=== PATIENT | female | born 1975 | race Two or more races ===

== ENCOUNTER 2019-01-13 10:04 | Observation (INO) | payer BC ==
[~2019-01-13] VITALS: Ht 157.5 cm; Wt 74.0 kg
[~2019-01-13 10:04] MED LIST: ALBU18HF INH; AMLO2.5T5 PO; ATOR10TA9 PO; CARV6.2512 PO; CLOP75TA PO; FLUT1BLS INH; IPRA3AMP30 INH; LOSA25TA2 PO; METO-93 PO; TICA90TA PO
--- NOTE | 2019-01-13 10:05 | NUR ---
PT TO ROOM FROM [facility], C/O 06/18 STERNAL CP WITH HX OF MD IN JUNE 2018. EKG DONE, PT PLACED ON MONITOR, MD AT BEDSIDE. FAMILY AT BEDSIDE. MED REC DONE.
[2019-01-13] MEDS ORDERED: SODIUM CHLORIDE FLUSH 10ML SYR IVF ONE (10:30)
[2019-01-13] MEDS ORDERED: MORPHINE SULFATE 4 MG/ML, 1ML IVPush PRN (10:30)
[2019-01-13] MEDS ORDERED: ONDANSETRON 2MG/ML, 2ML IVPush ONE (10:30)
[2019-01-13 10:53] LABS: BASOPHILS # (AUTO) 0.04 x10^3/uL (0-0.1); BASOPHILS % (AUTO) 0 % (0-1); EOSINOPHILS % (AUTO) 1 % (1-7); LYMPHOCYTES # (AUTO) 2.38 x10^3/uL (1-3.4); LYMPHOCYTES % (AUTO) 23 % (22-44); MD NO; MEAN CORPUSCULAR HEMOGLOBIN 31.6 pg (27.0-34.8); MEAN CORPUSCULAR VOLUME 95.9 fL (80-100); MEAN PLATELET VOLUME 6.9 fL (7.4-10.4); MONOCYTES % (AUTO) 5 % (2-9); NEUTROPHILS % (AUTO) 71 % (42-75); PLATELET COUNT 334 x10^3/uL (130-400); RED BLOOD COUNT 4.24 x10^6/uL (3.82-5.3); RED CELL DISTRIBUTION WIDTH 13.6 % (9.6-15.2)
[2019-01-13 11:05] LABS: ALANINE AMINOTRANSFERASE 18 U/L (12-78); ALBUMIN 3.5 g/dL (3.4-5.0); ANION GAP 7 mmol/L (5-15); CALCIUM 8.5 mg/dL (8.5-10.1); CHLORIDE 115 mmol/L (98-107); CREATININE 0.68 mg/dL (0.55-1.02)
[2019-01-13 11:09] LABS: ALKALINE PHOSPHATASE 68 U/L (45-117); BILIRUBIN,TOTAL 0.3 mg/dL (0.2-1.0); TROPONIN I < 0.015 ng/mL (0.000-0.045)
--- NOTE | 2019-01-13 11:10 | NUR ---
PT RESTING IN [place], FAMILY AT BEDSIDE, NAD
[2019-01-13] MEDS ORDERED: ONDANSETRON 2MG/ML, 2ML ONE (11:26)
[2019-01-13] MEDS ORDERED: MORPHINE SULFATE 4 MG/ML, 1ML ONE ×2 (11:26→11:29)
[2019-01-13] MEDS ORDERED: SODIUM CHLORIDE 0.9% 1,000 ML IV ONE (11:53)
[2019-01-13] MEDS ORDERED: SODIUM CHLORIDE FLUSH 10ML SYR IVF PRN (12:00)
[2019-01-13] MEDS ORDERED: BUTALB/APAP/CAFFEINE 50MG/325MG/40MG PO PRN (12:30)
[2019-01-13] MEDS ORDERED: NICOTINE 21 MG/24 HR PATCH.TD24 TD SCH (12:30)
[2019-01-13] MEDS ORDERED: ACETAMINOPHEN 325 MG TABLET PO PRN (12:30)
[2019-01-13] MEDS ORDERED: KETOROLAC 30 MG/1 ML IV PRN (12:30)
[2019-01-13] MEDS ORDERED: BISACODYL 10 MG SUPP PR PRN (12:30)
[2019-01-13] MEDS ORDERED: ALBUTEROL SULFATE INH PRN (12:30)
[2019-01-13] MEDS ORDERED: LIDODERM 5% PATCH TD PRN (12:30)
[2019-01-13] MEDS ORDERED: ENOXAPARIN 40 MG/0.4 ML SQ SCH (12:30)
[2019-01-13] MEDS ORDERED: ENALAPRILAT 1.25 MG/ML, 2ML IVPush PRN ×2 (12:30)
[2019-01-13] MEDS ORDERED: DOCUSATE 100 MG CAPSULE PO PRN (12:30)
[2019-01-13] MEDS ORDERED: ONDANSETRON ODT 4 MG PO PRN (12:30)
[2019-01-13] MEDS ORDERED: hydrALAzine 20 MG/ML, 1ML IVPush PRN (12:30)
[2019-01-13] MEDS ORDERED: ZOLPIDEM 5MG TABLET PO PRN (12:30)
[2019-01-13] MEDS ORDERED: ONDANSETRON 2MG/ML, 2ML IVPush PRN (12:30)
--- NOTE | 2019-01-13 12:46 | NUR ---
Sandy terrazas in EDM - 01/13/19 at 1336 by EMERY FAMILY AT BEDSIDE, FOUND PT EATING SANDWICH FROM FAMILY, PT AND FAMILY EDUCATED ON POC AND TO KEEP PT NPO UNTIL EVALUATED BY MD. MICHELINE BYRD
--- NOTE | 2019-01-13 12:46 | NUR ---
PT TO RESTROOM AND BACK TO BED. FAMILY AT BEDSIDE. NO NEEDS AT THIS TIME. CALL LIGHT WITHIN REACH
[2019-01-13 13:18] LABS: TROPONIN I < 0.015 ng/mL (0.000-0.045)
[2019-01-13 13:23] LABS: FREE T4 (FREE THYROXINE) 0.99 ng/dL (0.76-1.46)
[2019-01-13] MEDS ORDERED: ENOXAPARIN 40 MG/0.4 ML ONE (14:50)
[2019-01-13] MEDS ORDERED: NICOTINE 21 MG/24 HR PATCH.TD24 ONE (14:50)
--- NOTE | 2019-01-13 15:51 | NUR ---
TRIED TO CALL REPORT TO MELQUIADES NOBLES, TOLD SHE IS ON LUNCH AND WILL CALL BACK WHEN FINISHED
[2019-01-13 16:33] VITALS: BP 151/97
[2019-01-13] MEDS: ALBUTEROL/IPRATROPIUM 2.5MG/0.5MG, 3 ML NPPB SCH ×2 (17:00→21:00)
[2019-01-13 18:10] VITALS: BP 157/81
[2019-01-13] MEDS: CARVEDILOL 6.25 MG TABLET PO SCH (18:11)
[2019-01-13 18:53] VITALS: BP 130/84
[2019-01-13 19:05] LABS: TROPONIN I < 0.015 ng/mL (0.000-0.045)
[2019-01-13] MEDS: FAMOTIDINE 20 MG TABLET PO SCH (20:33)
[2019-01-13] MEDS ORDERED: ATORVASTATIN 10 MG TABLET PO SCH (21:00)
[2019-01-14 00:37] VITALS: BP 151/89
[2019-01-14 05:26] LABS: BASOPHILS # (AUTO) 0.03 x10^3/uL (0-0.1); BASOPHILS % (AUTO) 1 % (0-1); EOSINOPHILS # (AUTO) 0.13 x10^3/uL (0-0.4); EOSINOPHILS % (AUTO) 2 % (1-7); LYMPHOCYTES # (AUTO) 1.67 x10^3/uL (1-3.4); LYMPHOCYTES % (AUTO) 25 % (22-44); MD NO; MEAN CORPUSCULAR HEMOGLOBIN 32.6 pg (27.0-34.8); MEAN CORPUSCULAR HGB CONC 34.1 g/dL (32.4-35.8); MEAN CORPUSCULAR VOLUME 95.6 fL (80-100); MEAN PLATELET VOLUME 7.1 fL (7.4-10.4); MONOCYTES # (AUTO) 0.45 x10^3/uL (0.2-0.8); MONOCYTES % (AUTO) 7 % (2-9); NEUTROPHILS % (AUTO) 66 % (42-75); PLATELET COUNT 299 x10^3/uL (130-400); RED BLOOD COUNT 4.26 x10^6/uL (3.82-5.3); RED CELL DISTRIBUTION WIDTH 13.2 % (9.6-15.2)
[2019-01-14 05:41] LABS: ANION GAP 4 mmol/L (5-15); CALCIUM 8.2 mg/dL (8.5-10.1); CHLORIDE 113 mmol/L (98-107); CHOLESTEROL, TOTAL 164 mg/dL (140-239); CREATININE 0.73 mg/dL (0.55-1.02); TRIGLYCERIDES 61 mg/dL (50-200); VLDL CHOLESTEROL 12 mg/dL (0-25)
[2019-01-14 05:43] LABS: CHOL/HDL RATIO 3.8; HDL CHOL % 26 % (28-40); HDL CHOLESTEROL (DIRECT) 43 mg/dL (40-60); LDL CHOLESTEROL,CALCULATED 109 mg/dL (54-169); LDL/HDL RATIO 2.5 (0.5-3.0)
[2019-01-14 06:32] VITALS: BP 165/107
[2019-01-14] MEDS: CARVEDILOL 6.25 MG TABLET PO SCH (06:35)
[2019-01-14 06:55] VITALS: BP 152/92
[2019-01-14] MEDS ORDERED: CLOPIDOGREL 75 MG TABLET PO SCH (09:00)
[2019-01-14] MEDS ORDERED: AMLODIPINE 2.5 MG TABLET PO SCH (09:00)
[2019-01-14] MEDS ORDERED: LOSARTAN 50MG TABLET PO SCH (09:00)
[2019-01-14] MEDS ORDERED: FLUTICASONE/VILANTEROL 200-25MCG/INH INH SCH (09:00)
[2019-01-14] MEDS ORDERED: REGADENOSON 0.4 MG/5 ML SYRINGE ONE (10:01)
[2019-01-14] MEDS: FAMOTIDINE 20 MG TABLET PO SCH (11:18)
[2019-01-14] MEDS ORDERED: BUDESONIDE 0.5 MG/2 ML INHA NPPB SCH (11:30)
[2019-01-14] MEDS ORDERED: BUDESONIDE 0.5 MG/2 ML INHA HHN SCH (11:31)
[2019-01-14 13:26] VITALS: BP 157/99
== END 2019-01-14 16:53 | disposition home or self-care (01) ==
LOC: ED 11:33 → INTOOBSV 11:53 → EDIP 11:53 → 5SO 16:27 → DCLOUNGE 01-14 16:42
PROVIDERS: ADMIT Internal Medicine; ATTEND Internal Medicine
DX: R07.89 Other chest pain (principal); E11.9 Type 2 diabetes mellitus without complications; E78.5 Hyperlipidemia, unspecified; F12.90 Cannabis use, unspecified, uncomplicated; F31.9 Bipolar disorder, unspecified; F41.9 Anxiety disorder, unspecified; G43.909 Migraine, unspecified, not intractable, without status migrainosus; I10 Essential (primary) hypertension; I25.2 Old myocardial infarction; Z72.0 Tobacco use; Z88.6 Allergy status to analgesic agent
CPT/HCPCS: 36415; 71045; 78452; 80048; 80053; 80061; 82140; 83690; 84439; 84443; 84484; 85025; 93005; 93017; 93306; 94640; 96372; 96374; 96375; 99284; A9502; C9898; G0378; J1650; J2405; J2785; J7030; J7620